=== PATIENT | female | born 1980 | race Caucasian/White ===

== ENCOUNTER 2022-11-30 21:52 | Emergency (ER) | payer OTHER ==
[~2022-11-30] VITALS: Ht 152.4 cm; Wt 81.9 kg
[2022-11-30] MEDS ORDERED: NITROFURANTOIN100 M1 PO (22:11)
[2022-11-30] MEDS ORDERED: LISINOPRIL-HCT1 EAC1 PO (22:11)
[2022-11-30] MEDS ORDERED: PAROXETINE HCL40 MG PO (22:11)
[2022-11-30 22:28] LABS: BASOPHILS 0.6 % (0-2); EOSINOPHILS 2.8 % (0-6); HEMATOCRIT 33.5 % (35.0-50.0); HEMOGLOBIN 10.6 g/dL (12.0-18.0); LYMPHOCYTES 21.2 % (24-44); MCH 22.9 (27-36); MCHC 31.6 g/dl (30-36); MCV 72.6 fl (81-99); MONOCYTES 6.1 % (0-12); NEUTROPHILS 69.3 % (39-80); PLATELET COUNT 310 K/uL (140-440); RBC 4.62 M/ul (4.3-5.7)
[2022-11-30 22:44] LABS: ALBUMIN 3.2 g/dL (3.4-5.0); ALBUMIN/GLOBULIN RATIO 0.82 (1.1-2.4); ANION GAP 10.9 (7-21); BILIRUBIN, TOTAL 0.3 ng/dL (0.2-1.0); CALCIUM 9.1 mg/dL (8.5-10.1); CREATININE, SERUM 0.8 mg/dL (0.55-1.02); POTASSIUM 2.9 mmol/L (3.5-5.1); PROTEIN, TOTAL 7.1 g/dL (6.4-8.2)
[2022-11-30 23:42] LABS: BILIRUBIN, URINE NEGATIVE (negative); BLOOD/HGB, URINE LARGE (Negative); KETONE, URINE TRACE (Negative); LEUK ESTERASE, URINE TRACE (negative); NITRITE, URINE NEGATIVE (negative); PH, URINE 5.5 (5-7)
[2022-11-30 23:48] LABS: EPITHELIAL CELLS, URINE SQUAMOUS 1+ /lpf (0-1+); RED BLOOD CELLS, URINE >50 /hpf (0-5)
[2022-11-30 23:49] LABS: BACTERIA, URINE RARE /hpf (negative); CASTS, URINE NONE SEEN \\lpf; CRYSTALS, URINE NONE SEEN (0-1+); REFLEX CULTURE, URINE No (No)
[2022-12-01] MEDS ORDERED: CEPHALEXIN500 MG PO (00:42)
[2022-12-01] MEDS ORDERED: POTASSIUM CHLO20 ME2 PO (00:42)
[2022-12-01 01:04] VITALS: BP 167/98
== END 2022-12-01 01:10 | disposition home or self-care (01) ==
LOC: ED 21:52
PROVIDERS: Internal Medicine
DX: N39.0 Urinary tract infection, site not specified (principal); E87.6 Hypokalemia; I10 Essential (primary) hypertension; Z79.899 Other long term (current) drug therapy
CPT/HCPCS: 36415; 74176; 80053; 81001; 84703; 85025; 85060; 96374; 96375; 99284-25; A9270; J1885; J2405; J7121

== ENCOUNTER 2023-11-09 11:24 | Emergency (ER) | payer OTHER ==
[~2023-11-09] VITALS: Ht 152.4 cm; Wt 89.0 kg
[~2023-11-09 11:24] MED LIST: CEPHALEXIN500 MG PO; COZAAR25 MG PO; LABETALOL HCL200 MG PO; LISINOPRIL-HCT1 EAC1 PO; NITROFURANTOIN100 M1 PO; PAROXETINE HCL40 MG PO; POTASSIUM CHLO20 ME2 PO; PROGESTERONE200 MG PO; SERTRALINE HCL50 MG PO; VALACYCLOVIR1000 MG PO
--- OUTSIDE RECORDS SUMMARY | 2023-11-09 11:31 | XMS ---
PreManage Notification: JAIMIE BARBOUR Security [employer] Events No recent Security Events currently on file CRITERIA MET - [facility] - 2 Visits in 30 Days CARE PROVIDERS There are no care providers on record at this time. Gisella has no Care Guidelines for this patient. Ethan VISIT COUNT (12 MO.) 5 [facility] [place] [facility]. TOTAL 5 NOTE: Visits indicate total known visits. ED/C VISIT TRACKING (12 MO.) 11/09/2023 11:[address] [facility] [place] TYPE: Emergency COMPLAINT: - R SHOULDER/ARM PAIN 11/06/2023 08:52 [facility] [place] TYPE: Emergency COMPLAINT: - FLANK PAIN DIAGNOSES: - 21 weeks gestation of - Dysuria - Other senior living (current) drug therapy - Other specified diseases and conditions complicating - Unspecified abdominal pain - Unspecified maternal hypertension, second trimester 09/18/2023 09:02 [facility] [place] TYPE: Emergency COMPLAINT: - POSS DEHYDRATION DIAGNOSES: - 14 weeks gestation of - Diarrhea, unspecified - Other specified diseases and conditions complicating 07/21/2023 08:24 [facility] [place] TYPE: Emergency COMPLAINT: - DEHYRATION DIAGNOSES: - Diarrhea, unspecified - Endocrine, nutritional and metabolic diseases complicating , first trimester - Hormone replacement therapy - Less than 8 weeks gestation of - Other terminal superintendent (current) drug therapy - Other specified related conditions, first trimester - Polycystic ovarian syndrome - Pre-existing essential hypertension complicating , first trimester - Unspecified infection of urinary tract in , first trimester - Urinary tract infection, site not specified 11/30/2022 21:53 [facility] [place] TYPE: Emergency COMPLAINT: - FLANK PAIN DIAGNOSES: - Essential (primary) hypertension - Hypokalemia - Other senior living (current) drug therapy - Unspecified abdominal pain - Urinary tract infection, site not specified INPATIENT VISIT TRACKING (12 MO.) No inpatient visits to display in this time frame [email or web address]
[2023-11-09] MEDS ORDERED: PRENATAL + DHA1 EACH (14:53)
[2023-11-09] MEDS ORDERED: CHILDREN'S ASPI81 M1 PO (14:54)
[2023-11-09] MEDS ORDERED: ACETAMINOPHEN 500 MG TAB PO ONE (15:45)
[2023-11-09 16:18] VITALS: BP 143/81
== END 2023-11-09 16:18 | disposition home or self-care (01) ==
LOC: ED 11:24
DX: O26.892 Other specified pregnancy related conditions, second trimester (principal); M25.511 Pain in right shoulder; Z3A.21 21 weeks gestation of pregnancy; X58.XXXA Exposure to other specified factors, initial encounter; I10 Essential (primary) hypertension; Z79.82 Long term (current) use of aspirin; Z79.899 Other long term (current) drug therapy
CPT/HCPCS: 73030; A9270

== ENCOUNTER 2023-11-29 21:57 | Observation (INO) | payer OTHER ==
[~2023-11-29 21:57] MED LIST changes: +CHILDREN'S ASPI81 M1 PO; +PRENATAL + DHA1 EACH
[2023-11-29] MEDS ORDERED: LABETALOL HCL 100 MG/20 ML MDV IV PRN ×3 (22:30)
[2023-11-29] MEDS ORDERED: hydrALAZINE HCL 20 MG/ML VIAL IV PRN (22:30)
[2023-11-29 22:45] LABS: HEMOGLOBIN 11.2 g/dL (12.0-18.0)
[2023-11-29 22:47] LABS: BASOPHILS 0.8 % (0-2); EOSINOPHILS 3.7 % (0-6); HEMATOCRIT 34.4 % (35.0-50.0); LYMPHOCYTES 13.5 % (24-44); MCH 28.1 (27-36); MCHC 32.6 g/dl (30-36); MCV 86.2 fl (81-99); MONOCYTES 5.9 % (0-12); NEUTROPHILS 76.1 % (39-80); PLATELET COUNT 263 K/uL (140-440); RBC 3.99 M/ul (4.3-5.7); RDW 16.5 (10.5-15.0)
[2023-11-29 22:56] LABS: CREATININE, RANDOM URINE 29.59 mg/dL (NOT ESTABLISHED); PROTEIN/CREATININE RATIO 0.4 mg/mg (0.010-0.107)
[2023-11-29 22:59] LABS: ALBUMIN 2.6 g/dL (3.4-5.0); ALBUMIN/GLOBULIN RATIO 0.59 (1.1-2.4); ANION GAP 14.2 (7-21); BILIRUBIN, TOTAL 0.3 ng/dL (0.2-1.0); BUN/CREATININE RATIO 7.69 (6.0-28.6); CALCIUM 9.3 mg/dL (8.5-10.1); CREATININE, SERUM 0.65 mg/dL (0.55-1.02); POTASSIUM 3.2 mmol/L (3.5-5.1)
[2023-11-29] MEDS ORDERED: ACETAMINOPHEN 500 MG TAB PO ONE (23:00)
[2023-11-30 03:14] LABS: ABO O; ANTIBODY SCREEN NEGATIVE; RH POSITIVE
[2023-11-30] MEDS ORDERED: LABETALOL HCL 100 MG/20 ML MDV IV ONE (05:15)
[2023-11-30 07:57] VITALS: BP 125/70
[2023-11-30] MEDS ORDERED: hydrALAZINE HCL 20 MG/ML VIAL IV PRN ×3 (09:15)
[2023-11-30] MEDS ORDERED: LACTATED RINGER'S 1,000 ML IV SCH (10:30)
[2023-11-30] MEDS ORDERED: BETAMETHASONE SOD PHOS/ACETATE 6 MG/ML ML IM SCH (10:30)
[2023-11-30] MEDS ORDERED: MAGNESIUM SULFATE 500 ML IV SCH (10:30)
[2023-11-30] MEDS ORDERED: CALCIUM GLUCONATE 1,000 MG/10 ML VIAL IV PRN (10:30)
[2023-11-30 10:52] VITALS: BP 172/105
[2023-11-30 11:44] LABS: AMPHETAMINES, URINE NEGATIVE (NEGATIVE); BARBITURATES, URINE NEGATIVE (NEGATIVE); BENZODIAZEPINE, URINE NEGATIVE (NEGATIVE); BUPRENORPHINE, URINE NEGATIVE (NEGATIVE); CANNABINOID, URINE NEGATIVE (NEGATIVE); COCAINE, URINE NEGATIVE (NEGATIVE); ECSTASY, URINE POSITIVE (NEGATIVE); FENTANYL, URINE NEGATIVE (NEGATIVE); METHADONE, URINE NEGATIVE (NEGATIVE); OPIATES, URINE NEGATIVE (NEGATIVE); OXYCODONE, URINE NEGATIVE (NEGATIVE); PHENCYCLIDINE, URINE NEGATIVE (NEGATIVE)
== END 2023-11-30 11:05 | disposition short-term general hospital (02) ==
LOC: FBCO 21:57 → FBC 11-30 00:50
PROVIDERS: ADMIT Obstetrics & Gynecology; ATTEND Obstetrics & Gynecology
DX: O10.912 Unspecified pre-existing hypertension complicating pregnancy, second trimester (principal); O09.522 Supervision of elderly multigravida, second trimester; Z3A.24 24 weeks gestation of pregnancy
CPT/HCPCS: 36415; 80053; 80307; 82570; 84156; 85025; 86850; 86900; 86901; A9270; J0360; J0702; J3475

== ENCOUNTER 2024-11-07 09:42 | Day surgery (SDC) | payer OTHER ==
[2024-11-04 16:32] VITALS: BP 139/78
[~2024-11-07] VITALS: Ht 152.4 cm; Wt 80.7 kg
--- NOTE | ~2024-11-07 | OR ---
[facility] [address], [place] [address] Draft DATE OF OPERATION: 11/07/2024 SURGEON: Don Alonso MD PREOPERATIVE DIAGNOSES: 1. Chronic calculous cholecystitis. 2. Obesity. POSTOPERATIVE DIAGNOSES: 1. Chronic calculous cholecystitis. 2. Obesity. PROCEDURE: 1. Laparoscopic cholecystectomy with intraoperative cholangiogram. 2. Surgeon-directed fluoroscopy. ANESTHESIA: General endotracheal, Karmen Ramos CRNA and local 10 mL of 0.25% Marcaine with epinephrine. INDICATION: This 44-year-old woman is approximately nine months from her second child. She has had symptoms highly suggestive of biliary colic including right upper abdominal pain. An ultrasound was performed showing a "diseased gallbladder," which did include gallstones. Her symptoms were diagnosed prior to . Unfortunately, the patient had a prematurely born child and spent several months in [facility] in [place]. Since that time, the patient has had episodic right upper abdominal pain highly typical of biliary colic. She is admitted at this time to undergo cholecystectomy preferred by laparoscopic approach. The risk of bleeding, infection, bile duct injury, need for open procedure and of course failure to cure her symptoms was all reviewed in detail. She understands, wished to proceed. FINDINGS: Indeed the gallbladder was chronically inflamed. Cholesterolosis was profound. She had four small stones as well. Intraoperative cholangiogram was normal. Liver was normal. There were no other findings of note. DESCRIPTION OF PROCEDURE: The patient was brought to the operating room, given a general endotracheal anesthetic. Preoperative antibiotic Ancef was given. Sequential compression device stockings used PATIENT NAME: JAIMIE BARBOUR OPERATIVE REPORT DATE OF : 80 REPORT #: [id number] PHYSICIAN: DON LAONSO MD PCP: TASHA WALDEN PA-C REPORT IS CONFIDENTIAL AND NOT TO BE RELEASED WITHOUT AUTHORIZATION [facility] [address], [place] [address] Draft and heparin subcutaneously administered. The abdomen was prepared with a chlorhexidine solution and draped sterilely. An infraumbilical incision was made and using an open Olga cannula technique, pneumoperitoneum achieved to a level of 14 mmHg of carbon dioxide gas. Intra-abdominal inspection showed no sign of ascites or carcinomatosis. The gallbladder was largely obscured from view. The liver appeared reasonable given her age and body habitus. Three additional trocars were placed in usual configuration in the subxiphoid, right midclavicular, and right anterior axillary line. Gallbladder was grasped and elevated cephalad and retracted laterally. Using blunt and electrocautery dissection, the triangle of Calot was dissected free identifying well the cystic duct and cystic arterial branches. The clips were applied to the cystic artery and a clip was applied across gallbladder cystic duct junction. A transverse choledochotomy was made in the cystic duct allowing for egress of clear bile. Using an Brothers type cholangiocatheter, intraoperative cholangiography was undertaken showing free flow of contrast in biliary tree. Retrograde filling was not forthcoming and on that basis, she was given 4 mg of morphine intravenously. This did mildly allow for ampullary spasm and proximal biliary tree filling. There were no notable abnormalities. The catheter was removed and the cystic duct was triply clipped and divided and the gallbladder dissected free in a retrograde fashion using electrocautery. Minimal entry to the gallbladder allowed for spillage of a small amount of bile. The gallbladder was placed in an endobag and extracted through the infraumbilical port site, opened on the back table and found to have profound cholesterolosis as well as four small cholesterol type gallstones. There was no sign of neoplasm. Irrigation was undertaken in subhepatic space. There was no sign of bile leak, bleeding, or other problems. The trocars were removed under direct visualization showing no sign of bleeding. The infraumbilical fascial incision reapproximated with interrupted 0 Vicryl suture. A 10 mL of 0.25% Marcaine without epinephrine was injected locally. The skin was then closed with interrupted 3-0 Vicryl. Steri-Strips were applied. The patient was ultimately extubated and transferred to the recovery room in good condition having suffered no complications. Sponge, needle, and instrument counts reported as correct x3. MD CARLY Simmons/ANDREEL /[id number] PATIENT NAME: JAIMIE BARBOUR OPERATIVE REPORT DATE OF : 80 REPORT #: [id number] PHYSICIAN: DON ALONSO MD PCP: TASHA WALDEN PA-C REPORT IS CONFIDENTIAL AND NOT TO BE RELEASED WITHOUT AUTHORIZATION [address] [address] Draft cc: SANDEEP Apple PA-C Copies: TASHA WALDEN PA-C ~ PATIENT NAME: JAIMIE BARBOUR OPERATIVE REPORT DATE OF : 80 REPORT #: [id number] PHYSICIAN: DON ALONSO MD PCP: TASHA WALDEN PA-C REPORT IS CONFIDENTIAL AND NOT TO BE RELEASED WITHOUT AUTHORIZATION
[~2024-11-07 09:42] MED LIST changes: +CEFAZOLIN SODIUM 2 GM/20 ML SYR IV SCH; +EPIPEN 2-P0.3 MG/0.3 IM; +HEParin SOD (PORCINE) 5,000 UNIT/ML SDV SUB-Q SCH; +IBLOOD GLUCOSE TEST STRIP 1 EA TEST VI PRN; +LACTATED RINGER'S 1,000 ML IV SCH; +LIDOCAINE HCL 1% 5 ML SDV INJ ONE; +METHYLPREDNISOLO4 M1 PO; +NIFEDIPINE ER30 MG PO
[2024-11-07 10:24] VITALS: BP 126/76
[2024-11-07] MEDS ORDERED: ROCURONIUM BROMIDE 50 MG/5 ML SYR ONE (11:59)
[2024-11-07] MEDS ORDERED: KETOROLAC TROMETHAMINE 30 MG/ML VIAL ONE (11:59)
[2024-11-07] MEDS ORDERED: LIDOCAINE HCL 2% 5 ML SDV ONE (11:59)
[2024-11-07] MEDS ORDERED: DEXAMETHASONE SOD PHOS 4 MG/ML VIAL ONE (11:59)
[2024-11-07] MEDS ORDERED: SODIUM CHLORIDE 0.9% 40 ML IV ONE (12:25)
[2024-11-07] MEDS ORDERED: KETAMINE in NS 50 MG/5 ML SYR ONE (12:40)
[2024-11-07] MEDS ORDERED: ACETAMINOPHEN 1,000 MG/100 ML VIAL ONE (13:15)
[2024-11-07] MEDS ORDERED: MORPHINE SULFATE 10 MG/ML VIAL ONE (13:32)
[2024-11-07] MEDS ORDERED: SUGAMMADEX SODIUM 200 MG/2 ML ML ONE (13:48)
[2024-11-07] MEDS ORDERED: OXYCODON-ACETA1 EAC2 PO (14:28)
[2024-11-07] MEDS ORDERED: IBUPROFEN600 MG PO (14:28)
[2024-11-07] MEDS ORDERED: ACETAMINOPHEN500 MG PO (14:28)
[2024-11-07] MEDS ORDERED: NALOXONE HCL 0.4 MG SYR IV PRN ×2 (14:30→14:45)
[2024-11-07] MEDS ORDERED: IBUPROFEN 600 MG TAB PO PRN (14:30)
[2024-11-07] MEDS ORDERED: PROCHLORPERAZINE EDISYLATE 10 MG/2 ML VIAL IV PRN (14:30)
[2024-11-07] MEDS ORDERED: OXYCODONE/APAP 7.5/325 TAB PO PRN (14:30)
[2024-11-07] MEDS ORDERED: LACTATED RINGER'S 1,000 ML IV SCH (14:30)
[2024-11-07] MEDS ORDERED: ACETAMINOPHEN 500 MG TAB PO PRN (14:30)
--- NOTE | 2024-11-07 14:38 | NUR ---
11/07/24 1438 Genna Mcgee 1414-PT ARRIVES TO PACU, VIA STRETCHER, PT NOT RESPONSIVE TO NOXIOUS STIMULI, OPA IN PLACE AND MANUAL JAW THRUST REQUIRED, VSS ON 6L VIA MASK. 1432-PT RESPONSIVE TO NOXIOUS STIMULI, OPA REMOVED. VS REMAIN STABLE ON 6L VIA MASK, RR EVEN AND UNLABORED W/O ASSISTANCE. 1435-PT SITTING UP IN BED, DENIES PAIN OR NAUSEA, TITRATED TO RA, VS REMAIN STABLE.
[2024-11-07] MEDS ORDERED: HYDROmorphone HCL 1 MG/ML SYR IV PRN (14:45)
[2024-11-07] MEDS ORDERED: MIDAZOLAM HCL 2 MG/2 ML VIAL IV PRN (14:45)
[2024-11-07] MEDS ORDERED: fentaNYL citrate 50 MCG/ML SDV IV PRN (14:45)
[2024-11-07 15:10] VITALS: BP 118/73
--- NOTE | 2024-11-07 15:23 | NUR ---
1510: PATIENT BACK IN DAY SURGERY ROOM FROM PACU. DENIES PAIN. DROWSY. EATING CRACKER AND DRINKING APPLE JUICE, BUT STATES STILL HAS SOME SLIGHT NAUSEA. VS CHECKED. ABDOMINAL SITES WITH SMALL AMOUNT OF RED DRAINAGE. SCDs ON. IV SITE WNL. CALL LIGHT WITHIN REACH.
[2024-11-07 16:15] VITALS: BP 115/76
[2024-11-07] MEDS ORDERED: SEVOFLURANE 250 ML BTL INH ONE (16:29)
--- NOTE | 2024-11-07 16:36 | NUR ---
1625: PATIENT MEDICATED FOR ABODMINAL PAIN. VS CHECKED. CALL LIGHT WITHIN REACH.
[2024-11-07 17:15] VITALS: BP 137/81
--- NOTE | 2024-11-07 18:00 | NUR ---
1710 HOURLY ROUNDING DONE WITH PT. VITALS TAKEN. IV ASSESSED. PT AMBULATED TO BATHROOM WITH STEADY GAIT. PT ABLE TO VOID 400 MLS OF CLEAR YELLOW URINE. PT ABLE TO AMBULATE BACK TO ROOM. PT STATES PAIN IS A TOLERABLE 4/10, PT REPORTS NO NAUSEA AT THIS TIME. 1715 DISCHARGE INFORMATION GONE OVER WITH PT. TO QUESTIONS AT THIS TIME. PRESCRIPTION IN WITH DISCHARGE INFORMATION. 1716 IV DISCONTINUED FOR DISCHARGE. PT GETTING DRESSED. 1720 SMALL AMOUNT OF RED DRAINAGE FROM UPPER ABDOMINAL LAP SITE. DRESSING REENFORCED WITH BANDAID. SENT PT HOME WITH EXTRA BANDAIDS. 1725 PT DISCHARGED FROM DAY SURGERY VIA WHEELCHAIR TO THE FRONT OF THE HOSPITAL TO PT'S MOTHER'S CAR. PT HAS DISCHARGE INFORMATION IN HAND ALONG WITH PRESCRIPTION.
--- NOTE | 2024-11-11 16:15 | PATH ---
[facility] [address] [facility] [place], [place] [address] Signed SPECIMEN(S): A GALLBLADDER AND STONES SPECIMEN SOURCE: A. GALLBLADDER AND STONES CLINICAL HISTORY: Chronic calculus cholecystitis FINAL PATHOLOGIC DIAGNOSIS: Gallbladder and stones: - Chronic calculous cholecystitis. - Mucosal cholesterolosis. - Incidental pericystic lymph node with reactive features. JVR:george MICROSCOPIC EXAMINATION: Histologic sections of all submitted blocks are examined by light microscopy. These findings, together with the gross examination, support the pathologic diagnosis. GROSS DESCRIPTION: The specimen, labeled and designated "Beem, gallbladder and stones," is received in formalin and consists of Specimen: Previously opened gallbladder. Dimensions: 8.5 x 3.0 x 1.5 cm. Serosa: Green-lynn and smooth. Cystic Duct: Unobstructed, margin inked black and shaved. Calculi: Three yellow-brown fragmented calculi (0.1-0.4 cm in greatest dimension). Mucosa: [place]-lynn and velvety with yellow flecking. Wall thickness: 0.1-0.3 cm. Lymph node: One pink-lynn possible pericystic lymph node (0.5 x 0.4 x 0.4 cm). The tissue is inked blue, and the specimen is submitted in toto.. Additional: None. Wharf Attendant sections are submitted in (A1). VB (under the direct supervision of a pathologist) The Gross Description was prepared using a voice recognition system. The report was reviewed for accuracy; however, sound-alike word errors, addition and/or deletions may occur. If there is any question about this report, please contact Client Services. PATIENT NAME: JAIMIE BARBOUR PATHOLOGY DATE OF : 80 REPORT #: [id number] PHYSICIAN: CHRISTINA PATHOLOGY PCP: TASHA WALDEN PA-C REPORT IS CONFIDENTIAL AND NOT TO BE RELEASED WITHOUT AUTHORIZATION [facility] [address] [facility] [place] [address] Signed PERFORMING LABORATORY: Technical component was performed by [facility], [address] [place] [id number] (CLIA# [id number]). Professional interpretation was performed by [facility], [address] [place] [id number] (CLIA#: [id number]). Diagnostician: Fuentes Bravo MD Pathologist Electronically Signed 11/11/2024 Copies: ~ PATIENT NAME: JAIMIE BARBOUR PATHOLOGY DATE OF : 80 REPORT #: [id number] PHYSICIAN: CHRISTINA PATHOLOGY PCP: TASHA WALDEN PA-C REPORT IS CONFIDENTIAL AND NOT TO BE RELEASED WITHOUT AUTHORIZATION
== END 2024-11-07 17:25 | disposition home or self-care (01) ==
LOC: DS 09:42
PROVIDERS: ATTEND Surgery
PROC: BF13YZZ Fluoroscopy of Gallbladder and Bile Ducts using Other Contrast (ICD-10-PCS; 2024-11-07)
PROC: 0FT44ZZ Resection of Gallbladder, Percutaneous Endoscopic Approach (ICD-10-PCS; principal; 2024-11-07 11:15)
DX: K80.10 Calculus of gallbladder with chronic cholecystitis without obstruction (principal); E66.9 Obesity, unspecified; I10 Essential (primary) hypertension; F32.A Depression, unspecified; G47.30 Sleep apnea, unspecified; Z68.34 Body mass index [BMI] 34.0-34.9, adult; Z98.891 History of uterine scar from previous surgery; Z90.49 Acquired absence of other specified parts of digestive tract; Z79.899 Other long term (current) drug therapy
CPT/HCPCS: 00790; 74300; J0131; J0690; J1100; J1644; J1885; J2003; J2270; J2405; J2704; J3490; J7121; Q9967